=== PATIENT | male | born 1990 | race Two or more races ===

== ENCOUNTER 2020-09-09 01:00 | Emergency (ER) | payer SELFPAY ==
[~2020-09-09] VITALS: Ht 175.3 cm; Wt 79.4 kg
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
--- NOTE | 2020-09-09 02:01 | NUR ---
Note olindaone in EDM - 09/09/20 at 0406 by TONJA SPOKE TO POISON CONTROL. PT TOOK 280MG VYVANSE. CONTROL RECOMMENDS OBSERVATION FOR 6 HOURS. ADMIT IF NO PT IMPROVEMENT. RECOMMENDS EKG, CAKE FORMER, HYDRATION, BENZOS, LABS, UA TOX SCREEN, ASA, TYLENOL. MADE AWARE.
[2020-09-09 02:51] LABS: BASOPHILS # (AUTO) 0.1 /CMM (0.0-0.2); BASOPHILS % (AUTO) 0.7 % (0.0-2.0); EOSINOPHILS % (AUTO) 1.4 % (0.0-6.0); HEMATOCRIT 45 % (39-51); HEMOGLOBIN 15.1 g/dL (13.5-17.5); LYMPHOCYTES # (AUTO) 2.6 /CMM (0.8-4.8); LYMPHOCYTES % (AUTO) 34.8 % (20.0-44.0); MEAN CORPUSCULAR HGB CONC 34 g/dl (31.0-36.0); MEAN CORPUSCULAR VOLUME 85 fL (80-96); MONOCYTES # (AUTO) 0.6 /CMM (0.1-1.30); MONOCYTES % (AUTO) 8.3 % (2.0-12.0); NEUTROPHILS # (AUTO) 4.1 /CMM (1.8-8.9); NEUTROPHILS % (AUTO) 54.8 % (43.0-81.0); PLATELET COUNT (AUTO) 296 /CMM (150-450); RED BLOOD CELL COUNT(AUTO) 5.25 MIL/uL (4.5-6.0); WHITE BLOOD COUNT (AUTO) 7.5 K/uL (4.3-11.0)
[2020-09-09 03:02] LABS: CALCIUM, SERUM 9.2 mg/dL (8.5-10.1); CARBON DIOXIDE 27 mmol/L (21-32); CHLORIDE 104 mmol/L (98-107); CREATININE 0.9 mg/dL (0.6-1.3); GLUCOSE 112 mg/dL (74-106); POTASSIUM 3.7 mmol/L (3.5-5.1); SODIUM SERUM 140 mmol/L (136-145); UREA NITROGEN, BLOOD 14 mg/dL (7-18)
[2020-09-09] MEDS ORDERED: IBUP-1955 PO (03:50)
[2020-09-09] MEDS ORDERED: IBUPROFEN 600 MG TABLET ONE (03:57)
--- NOTE | 2020-09-09 04:06 | NUR ---
Patient discharged to home in stable condition. Written and verbal after care instructions given. Patient verbalizes understanding of instruction.
[2020-09-09 04:26] VITALS: BP 158/98
[2020-09-09] MEDS ORDERED: IBUPROFEN 600 MG TABLET PO ONE (04:30)
== END 2020-09-09 04:26 | disposition home or self-care (01) ==
LOC: ER 01:00
DX: S16.1XXA Strain of muscle, fascia and tendon at neck level, initial encounter (principal); S09.8XXA Other specified injuries of head, initial encounter; F07.81 Postconcussional syndrome; R59.0 Localized enlarged lymph nodes; R55 Syncope and collapse; V32.5XXA Driver of three-wheeled motor vehicle injured in collision with two- or three-wheeled motor vehicle in traffic accident, initial encounter; Y93.89 Activity, other specified; Y92.413 State road as the place of occurrence of the external cause; Y99.8 Other external cause status
CPT/HCPCS: 36415; 70450-TC; 71045-TC; 72125-TC; 80048-TC; 84484-TC; 85025-TC